=== PATIENT | female | born 1980 | race Caucasian/White ===

== ENCOUNTER 2020-11-23 22:32 | Emergency (ER) | payer OTHER ==
[~2020-11-23] VITALS: Ht 165.1 cm; Wt 106.1 kg
[2020-11-23] MEDS ORDERED: EVOCLIN100 GM (23:00)
[2020-11-23] MEDS ORDERED: DICLOFENAC35 MG (23:01)
[2020-11-24] MEDS ORDERED: INTESTINEX680 M1 PO (17:58)
[2020-11-24] MEDS ORDERED: DICLOFENAC SODI50 MG PO (17:58)
[2020-11-24] MEDS ORDERED: AMOX-CLAV 875-1 EAC1 PO (17:58)
== END 2020-11-24 19:09 | disposition home or self-care (01) ==
LOC: ER 22:32
DX: L03.211 Cellulitis of face (principal); J01.00 Acute maxillary sinusitis, unspecified; R60.0 Localized edema